=== PATIENT | male | born 1935 | race Caucasian/White ===

== ENCOUNTER 2023-02-03 17:16 | Emergency (ER) | payer OTHER ==
[~2023-02-03] VITALS: Ht 175.3 cm; Wt 86.2 kg
== END 2023-02-03 19:23 | disposition home or self-care (01) ==
LOC: ER 17:16
DX: S66.307A Unspecified injury of extensor muscle, fascia and tendon of left little finger at wrist and hand level, initial encounter (principal); W01.198A Fall on same level from slipping, tripping and stumbling with subsequent striking against other object, initial encounter; Y92.002 Bathroom of unspecified non-institutional (private) residence as the place of occurrence of the external cause
CPT/HCPCS: 73140; 99283-25